=== PATIENT | female | born 1985 | race Caucasian/White ===

== ENCOUNTER 2022-02-05 06:04 | Emergency (ER) | payer MEDICAID, SELFPAY ==
[2022-02-05 06:06] VITALS: BP 149/94; PULSE 103; RESP 16; TEMP 36.9; O2SAT 98; BMI 26.5
--- NOTE | 2022-02-05 06:30 | HMH.EDGENADL ---
ED Disposition Clinical Impression: Otitis media Qualifiers: Otitis media type: suppurative Chronicity: acute Laterality: right Recurrence: non-recurrent Spontaneous tympanic membrane rupture: without spontaneous rupture Qualified Code(s): H66.001 - Acute suppurative otitis media without spontaneous rupture of ear drum, right ear Disposition: Home, Self-Care Condition on Discharge: Good Instructions: DI for Middle Ear Infection-Adult Additional Instructions: You have been evaluated for ear pain, diagnosed with an ear infection on the right. Please use antibiotic drops. Take amoxicillin 1000 mg 3 times daily. Tylenol and Motrin for pain. Follow-up with your primary care doctor. Return to the emergency department for any new or worsening symptoms, headache, vomiting, sore throat, any other concerns. Prescriptions: Amoxicillin [Amoxicillin 500mg Tab] 1,000 mg PO Q8H 10 Days #60 tab Transmission Status: Received by [id number] Referrals: Provider,Referral, [Primary Care Provider] - Time of Disposition: 06:34 - Critical Care Critical Care Time: No Attestation: On 02/05/22, the high probability of a clinically significant, sudden or life threatening deterioration of the following system(s) required my full and direct attention, intervention and personal management. The time I documented below is in addition to time spent performing reported procedures but includes the following listed in this critical care notation. Medical Decision Making - Medical Records Medical records reviewed: Yes: I reviewed the patient's medical records. - Jalil Inquiry Pt receiving controlled substance: No Vital Signs: 02/05/22 06:06 02/05/22 06:43 Temperature 98.4 F 98.4 F Temperature Source Oral Oral Pulse Rate 88 Pulse Rate [Left Radial] 103 H Respiratory Rate 16 16 Blood Pressure 125/88 Blood Pressure [Right Arm] 149/94 H Blood Pressure Mean [Right Arm] 112 Blood Pressure Source Automatic Cuff Blood Pressure Source [Right Arm] Automatic Cuff Blood Pressure Position Sitting Blood Pressure Position [Right Arm] Sitting 02 Sat by Pulse Oximetry 98 Oxygen Delivery Method Room Air Room Air Orders (Tests/Meds): ED MEDICATIONS Discontinued Medications Generic Name Dose Route Start Last Admin Trade Name Freq PRN Reason Stop Dose Admin Amoxicillin 1,000 mg 02/05/22 06:22 02/05/22 06:29 Amoxicillin 500mg Capsule PO 02/05/22 06:23 1,000 mg ONCE ONE Administration Ciprofloxacin/Dexamethasone 0.5 ml 02/05/22 06:21 02/05/22 06:38 Cipro 0.3%-Dex 0.1% Otic Susp 7.5ml OT 02/05/22 06:22 0.5 ml ONCE ONE Administration Medical Decision Narrative: In summary this is a previously healthy 37-year-old female presenting to the emergency department with right ear pain. Patient clinically stable on arrival. Vital signs within normal limits. Physical exam is concerning for right-sided otitis media. However, she has erythema and hyperemia of the external auditory canal, suggesting a component of otitis externa. Signs of systemic illness. Doubt malignant otitis externa. Patient given Ciprodex drops in the emergency department. Instructed to use 3 times daily. Will prescribe amoxicillin 1000 mg 3 times daily. Tylenol Motrin for pain. Recommended PCP follow-up. Given return precautions. Stable for discharge. General Adult HPI - General Chief complaint: Ear Stated complaint: Right Ear pain Time Seen by Provider: 02/05/22 06:10 Mode of Arrival: Ambulatory Limitations: No Limitations Description of Symptoms (Recalled from ER Triage Doc. by RN): PT REPORTS RIGHT EAR PAIN- PT STATES PAIN STARTED YESTERDAY BUT SEEMS WORSE THIS MORNING. PT DENIES DRAINAGE. - History of Present Illness HPI narrative: 37-year-old female presenting to the emergency department with right ear pain. Symptoms started yesterday evening. She had a dull, aching pain in her right ear. Overnight the pain got much
[2022-02-05 06:43] VITALS: BP 125/88; PULSE 88; RESP 16; TEMP 36.9; O2SAT 97
== END 2022-02-05 06:45 | disposition home or self-care (01) ==
PROVIDERS: Emergency Provider Emergency Medicine
DX: H66.001 Acute suppurative otitis media without spontaneous rupture of ear drum, right ear (principal)
CPT/HCPCS: 99282

== ENCOUNTER 2022-03-06 15:49 | Emergency (ER) | payer MEDICAID, SELFPAY ==
[2022-03-06 15:51] VITALS: BP 155/104; PULSE 103; RESP 20; TEMP 36.7; O2SAT 100; BMI 27.3
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
[2022-03-06 18:00] VITALS: BP 154/101; PULSE 103; RESP 20; TEMP 36.7; O2SAT 100
== END 2022-03-06 18:02 | disposition left against medical advice (07) ==
PROVIDERS: Emergency Provider Emergency Medicine
DX: Z53.21 Procedure and treatment not carried out due to patient leaving prior to being seen by health care provider (principal)
CPT/HCPCS: 71046; 99283

== ENCOUNTER 2022-08-03 17:24 | Emergency (ER) | payer MEDICAID, SELFPAY ==
--- NOTE | 2022-08-03 17:34 | EXP.UTC ---
Discharge Plan Disposition Patient Disposition: Home, Self-Care Condition: Good Prescriptions Prescriptions: New prednisone 10 mg tablet 10 mg PO DIRECTED 9 Days Qty: 21 0RF Rx Instructions: Take 4 tablets daily for 3 days, then take 2 tablets daily for 3 days, then take 1 tablet daily for 3 days, then stop. [id number] [Bromfed DM] 2-30-10 mg/5 mL Syrup 5 ml PO Q6H PRN (Reason: Cough) Qty: 240 0RF cefdinir 300 mg capsule 300 mg PO BID Qty: 20 0RF No Action amoxicillin 500 MG tablet 1,000 mg PO Q8H 10 Days Qty: 60 0RF Referrals Follow up/Referrals: Tavo Macias [Primary Care Provider] - See instructions Activity Restrictions/Add. Instructions Additional Instructions/Restrictions: Drink plenty of fluids. Take tylenol or ibuprofen for pain or fever. Take the medications as directed. Follow up with your regular doctor. GO TO THE ER FOR ANY WORSENING SYMPTOMS Clinical Impressions Clinical Impression: Otitis media Instructions Patient Instructions: Middle Ear Infection Discharge ED Provider: Armando Chicas [facility] General Stated complaint: R EAR Time Seen by Provider: 08/03/22 17:34 History of Present Illness Provider Complaint: She states that she has had right ear pain for the past 2 days. She states that she has had bloody discharge from that ear. She also has sinus congestion. She denies other complaints. Related Data Previous Rx's Medication Instructions Recorded amoxicillin 500 mg tablet 1,000 mg PO Q8H 10 days #60 tabs 02/05/22 [id number] 5 ml PO Q6H PRN Cough #240 mL 08/03/22 2 mg-30 mg-10 mg/5 mL oral syrup (Bromfed DM) cefdinir 300 mg capsule 300 mg PO BID #20 caps 08/03/22 prednisone 10 mg tablet 10 mg PO DIRECTED 9 days #21 08/03/22 tabs Allergies Allergy/AdvReac Type Severity Reaction Status Date / Time INGREDIENT: NO KNOWN - NO Allergy Unknown Uncoded 08/03/22 18:04 KNOWN DRUG ALLERGY [facility] Disclaimer: The information contained in this section may have been updated after the patient was seen, as this information can be updated by other users. Social History Smoking Status: Current every day smoker tobacco type: cigarettes packs per day: 1 alcohol intake: never substance use type: marijuana current occupational status: unemployed Travel in the last 8 weeks: None household members: family housing: house ROS Obtained: Yes All systems reviewed & no additional complaints except as documented Constitutional Constitutional: Reports chills and Reports fever(s) Eyes Eyes: Denies eye discharge ENT Ears, Nose, Mouth, and Throat: Reports as per HPI Cardiovascular Cardiovascular: Denies chest pain Respiratory Respiratory: Denies chest congestion and Reports cough Gastrointestinal Gastrointestingal: Reports nausea; Denies abdominal pain, constipation, cramping, diarrhea or vomiting Musculoskeletal Musculoskeletal: Denies arthralgias Integumentary/Breasts Skin/Breast: Denies rash Neurologic Neurologic: Denies paresthesias Physical Exam General General appearance: alert and in no apparent distress Head Head exam: atraumatic, normocephalic and normal inspection Eye Eye exam: Present normal appearance, PERRL and EOMI ENT ENT exam: Present mucous membranes moist and normal external ear exam Expanded ENT Exam TM/Canal exam: Bilateral TM: erythema and bulging Nose exam: Absent sinus tenderness Mouth exam: Present normal external inspection; Absent drooling Teeth exam: Present normal inspection Throat exam: Present tonsillar erythema, tonsillomegaly and tonsillar exudate Neck Neck exam: Present normal inspection, full ROM and trachea midline; Absent tenderness, meningismus or lymphadenopathy Chest Chest inspection: Present normal inspection and symmetric chest wall rise; Absent tenderness Respiratory Respiratory ex
[2022-08-03 17:50] VITALS: BP 133/84; PULSE 118; RESP 20; TEMP 37; O2SAT 98; BMI 26.4
[2022-08-03 18:29] VITALS: BP 133/84; PULSE 118; RESP 20; TEMP 37; O2SAT 98
== END 2022-08-03 18:28 | disposition home or self-care (01) ==
PROVIDERS: Emergency Provider Nurse Practitioner Family; PCP Pediatrics
DX: H66.90 Otitis media, unspecified, unspecified ear (principal)
CPT/HCPCS: 99212; 99213; G0463